=== PATIENT | male | born 1995 | race Caucasian/White ===

== ENCOUNTER 2023-08-09 15:00 | Emergency (ER) | payer OTHER, SELFPAY ==
[~2023-08-09] VITALS: Ht 180.3 cm; Wt 69.0 kg
[2023-08-09 15:58] LABS: RSV AMPLIFICATION NEGATIVE (NEGATIVE)
[2023-08-09] MEDS ORDERED: BENZ200C70 PO (17:02)
[2023-08-09] MEDS ORDERED: OSEL75CA PO (17:02)
[2023-08-09] MEDS ORDERED: IBUP-1022 PO (17:02)
[2023-08-09 17:13] VITALS: BP 113/70; TEMP 98.2; O2SAT 97
== END 2023-08-09 17:17 | disposition home or self-care (01) ==
LOC: M ED 15:00
DX: J10.1 Influenza due to other identified influenza virus with other respiratory manifestations (principal); Z79.1 Long term (current) use of non-steroidal anti-inflammatories (NSAID); Z79.899 Other long term (current) drug therapy

== ENCOUNTER 2023-12-07 20:48 | Emergency (ER) | payer OTHER, SELFPAY ==
[~2023-12-07] VITALS: Ht 180.3 cm; Wt 66.4 kg
[2023-12-07 20:48] VITALS: BP 122/80; TEMP 98.5; O2SAT 96
[~2023-12-07 20:48] MED LIST: BENZ200C70 PO; IBUP-1022 PO; OSEL75CA PO
[2023-12-07 21:18] LABS: BASO # 0.1 10^3/uL (0.0-0.2); BASO % 0.6 % (0.0-1.0); EOS # 0.1 10^3/uL (0.0-0.5); EOS % 1.3 % (0.0-3.0); HEMATOCRIT 42.4 % (42.0-52.0); HEMOGLOBIN 14.5 g/dl (13.5-17.5); LYMPH # 2.1 10^3/uL (1.5-5.0); MEAN CORPUSCULAR HEMOGLOBIN 30.5 pg (27.0-33.0); MEAN CORPUSCULAR HGB CONC 34.2 g/dl (32.0-36.5); MEAN CORPUSCULAR VOLUME 89.1 fl (80.0-96.0); MONO # 0.5 10^3/uL (0.0-0.8); MONO % 6.8 % (2.0-8.0); NEUTROPHILS % 64.2 % (36.0-66.0); PLATELET COUNT, AUTOMATED 203 10^3/uL (150-450); RED BLOOD COUNT 4.76 10^6/uL (4.30-6.10); WHITE BLOOD COUNT 7.8 10^3/uL (4.0-10.0)
[2023-12-07 21:41] LABS: LIPASE 24 U/L (12-53)
[2023-12-07 21:43] LABS: ALBUMIN 4.3 G/DL (3.2-5.2); ALKALINE PHOSPHATASE 36 U/L (46-116); ALT/SGPT 24 U/L (7.0-40); AST/SGOT 18 U/L (<34); BILIRUBIN,DIRECT 0.2 MG/DL (<0.4); BILIRUBIN,TOTAL 0.8 MG/DL (0.3-1.2); BLOOD UREA NITROGEN 17 MG/DL (9-23); CALCIUM LEVEL 9.9 MG/DL (8.5-10.1); CARBON DIOXIDE LEVEL 28 MMOL/L (20-31); CHLORIDE LEVEL 106 MMOL/L (98-107); CREATININE FOR GFR 1.07 MG/DL (0.70-1.30); GLOMERULAR FILTRATION RATE > 60.0 (>60); GLUCOSE, FASTING 128 MG/DL (60-100); POTASSIUM SERUM 3.6 MMOL/L (3.5-5.1); SODIUM LEVEL 140 MMOL/L (136-145); TOTAL PROTEIN 7.2 G/DL (5.7-8.2)
== END 2023-12-07 23:11 | disposition left against medical advice (07) ==
LOC: M ED 20:48
DX: Z53.21 Procedure and treatment not carried out due to patient leaving prior to being seen by health care provider (principal)